=== PATIENT | male | born 1960 | race Caucasian/White ===

== ENCOUNTER 2017-08-16 08:11 | Emergency (ER) | payer BC ==
[~2017-08-16] VITALS: Ht 175.3 cm; Wt 89.9 kg
[2017-08-16 10:09] LABS: APPEARANCE CLEAR ((CLEAR)); BILIRUBIN NEGATIVE; BLOOD NEGATIVE; COLOR STRAW ((YELLOW)); GLUCOSE (STRIP) NEGATIVE; KETONES NEGATIVE; LEUKOCYTES NEGATIVE; NITRITE NEGATIVE; PROTEIN (STRIP) NEGATIVE; SPECIFIC GRAVITY 1.004 (1.000-1.030); UROBILINOGEN 0.2 MG/DL (0.2-1.0)
[2017-08-16] MEDS ORDERED: FLEXERIL10 MG PO (11:12)
[2017-08-16] MEDS ORDERED: MOTRIN600 MG PO (11:12)
[2017-08-16] MEDS ORDERED: NORCO 5/3251 TABLET PO (11:31)
[2017-08-16 11:34] VITALS: BP 136/77
== END 2017-08-16 11:35 | disposition home or self-care (01) ==
LOC: EME 08:11
PROVIDERS: Physician Assistant
DX: M54.9 Dorsalgia, unspecified (principal); I10 Essential (primary) hypertension; E78.00 Pure hypercholesterolemia, unspecified
CPT/HCPCS: 71046; 81003

== ENCOUNTER 2018-03-04 17:25 | Emergency (ER) | payer BC ==
[~2018-03-04] VITALS: Ht 175.3 cm; Wt 86.6 kg
[~2018-03-04 17:25] MED LIST: FLEXERIL10 MG PO; MOTRIN600 MG PO; NORCO 5/3251 TABLET PO
[2018-03-04 18:54] LABS: BASOPHIL (%) 0.7 % (0-1); EOSINOPHIL (%) 3.8 % (0-5); EOSINOPHIL COUNT 0.2 K/uL (0-0.3); HEMATOCRIT 36.5 % (38.0-50.0); HEMOGLOBIN 12.9 G/DL (12.5-16.6); IMMATURE GRANULOCYTE (%) 0.4 % (0.0-0.7); LYMPHOCYTE (%) 28.3 % (15-42); LYMPHOCYTE COUNT 1.6 K/uL (1.0-2.8); MCHC 35.3 G/DL (30.0-36.0); MCV 93.4 FL (86-99); MONOCYTE (%) 10.7 % (3-12); MONOCYTE COUNT 0.6 K/uL (0-0.8); NEUTROPHIL (%) 56.1 % (45-76); NEUTROPHIL COUNT 3.1 K/uL (1.8-6.4); PLATELET COUNT 204 K/uL (156-360); RBC DIS.WIDTH-CV 11.2 % (11.8-14.6); RBC DIS.WIDTH-SD 37.4 % (39-53); RED BLOOD COUNT 3.91 M/uL (4.00-5.50); WHITE BLOOD COUNT 5.5 K/uL (4.1-10.2)
[2018-03-04] MEDS ORDERED: KEFLEX500 MG PO (20:17)
[2018-03-04 20:50] VITALS: BP 148/92
== END 2018-03-04 20:52 | disposition home or self-care (01) ==
LOC: EME 17:25
PROVIDERS: Emergency Medicine
PROC: 0HQLXZZ Repair Left Lower Leg Skin, External Approach (ICD-10-PCS; principal; 2018-03-04)
DX: S81.012A Laceration without foreign body, left knee, initial encounter (principal); W29.3XXA Contact with powered garden and outdoor hand tools and machinery, initial encounter; Y93.89 Activity, other specified; R55 Syncope and collapse; R94.31 Abnormal electrocardiogram [ECG] [EKG]; Z79.82 Long term (current) use of aspirin
CPT/HCPCS: 73564; 85025; 93005; 99281; 99285